=== PATIENT | male | born 1960 | race Caucasian/White ===

== ENCOUNTER 2018-07-15 10:38 | Emergency (ER) | payer MEDICAID ==
[~2018-07-15] VITALS: Ht 185.4 cm; Wt 108.9 kg
[2018-07-15 10:50] VITALS: BP 140/103
== END 2018-07-15 12:25 | disposition home or self-care (01) ==
LOC: ER 10:38
DX: I10 Essential (primary) hypertension (principal); F17.210 Nicotine dependence, cigarettes, uncomplicated

== ENCOUNTER 2019-01-21 10:25 | Emergency (ER) | payer MEDICAID ==
[~2019-01-21] VITALS: Ht 185.4 cm; Wt 111.1 kg
[2019-01-21 10:34] VITALS: BP 136/94
[2019-01-21] MEDS ORDERED: KETOROLAC TROMETH 60MG/2ML VIAL IM ONE (11:30)
== END 2019-01-21 11:49 | disposition home or self-care (01) ==
LOC: ER 10:28
DX: S39.012A Strain of muscle, fascia and tendon of lower back, initial encounter (principal); I10 Essential (primary) hypertension; F17.210 Nicotine dependence, cigarettes, uncomplicated; X50.0XXA Overexertion from strenuous movement or load, initial encounter; Y93.89 Activity, other specified; Y99.8 Other external cause status; Y92.89 Other specified places as the place of occurrence of the external cause
CPT/HCPCS: 72100; 96372; 99283; J1885

== ENCOUNTER 2019-12-06 17:19 | Emergency (ER) | payer MEDICAID ==
[~2019-12-06] VITALS: Ht 185.4 cm; Wt 108.9 kg
[2019-12-06] MEDS ORDERED: KETOROLAC TROMETH 30 MG/ML 1ML VIAL IV ONE (18:00)
[2019-12-06] MEDS ORDERED: SODIUM CHLORIDE 0.9% 1,000 ML IVB ONE (18:00)
[2019-12-06 18:21] LABS: Urine Bacteria NONE SEEN /hpf (None Seen); Urine Blood Negative /uL (Negative); Urine Specific Gravity 1.006 (1.001-1.035); Urine WBC <1 /hpf (0 - 3)
[2019-12-06] MEDS ORDERED: cloNIDine HCL 0.1 MG TAB PO ONE (20:30)
[2019-12-06 21:00] VITALS: BP 153/98
== END 2019-12-06 19:11 | disposition home or self-care (01) ==
LOC: ER 17:19
DX: M54.31 Sciatica, right side (principal); F17.210 Nicotine dependence, cigarettes, uncomplicated; J45.909 Unspecified asthma, uncomplicated; I10 Essential (primary) hypertension
CPT/HCPCS: 74176; 81001; 96361; 96374; 99284; J1885; J7030

== ENCOUNTER 2020-03-03 09:13 | Emergency (ER) | payer MEDICAID, OTHER ==
[~2020-03-03] VITALS: Ht 185.4 cm; Wt 104.3 kg
[2020-03-03 09:15] VITALS: BP 137/84
== END 2020-03-03 12:00 | disposition home or self-care (01) ==
LOC: ER 09:13
DX: U07.1 COVID-19 (principal); I10 Essential (primary) hypertension; F17.210 Nicotine dependence, cigarettes, uncomplicated
CPT/HCPCS: 36415; 71045; 87426

== ENCOUNTER 2020-03-12 13:26 | Emergency (ER) | payer MEDICAID ==
[~2020-03-12] VITALS: Ht 185.4 cm; Wt 102.1 kg
[2020-03-12 15:19] LABS: Basophils # (auto) 0 10 ^3/uL (0-0.2); Basophils % (auto) 0.7 % (0.0-2.0); Eosinophils # (auto) 0.2 10 ^3/uL (0-0.8); Eosinophils % (auto) 2.1 % (0.0-7.0); Hematocrit 44.8 % (41.0-53.0); Hemoglobin 15.5 g/dL (13.5-17.5); Lymphocytes # (auto) 1.7 10 ^3/uL (0.4-5.4); Lymphocytes % (auto) 23.1 % (10.0-50.0); Mean Corpuscular Hemoglobin 29.8 pg (28.0-32.0); Mean Corpuscular Hgb Conc. 34.5 g/dL (32.0-36.0); Mean Corpuscular Volume 86.3 fL (80.0-100.0); Monocytes # (auto) 0.8 10 ^3/uL (0-1.3); Monocytes % (auto) 10.3 % (0.0-12.0); Neutrophils # (auto) 4.8 10 ^3/uL (1.6-8.6); Neutrophils % (auto) 63.8 % (37.0-80.0); Platelet Count (auto) 331 10^3/uL (140-450); Red Cell Distribution Width 14.7 % (11.8-14.3); White Blood Cell 7.4 10^3/uL (4.4-10.8)
[2020-03-12 15:45] LABS: Potassium 4.1 mmol/L (3.5-5.1)
[2020-03-12 15:50] LABS: Albumin 3.6 g/dL (3.4-5.0); BUN/Creatinine Ratio 18.8; Bilirubin, Total 0.7 mg/dL (0.2-1.0); CRP High Sensitivity 0.83 mg/dL (< 0.3); Calcium 8.6 mg/dL (8.5-10.1); Total Protein 8.1 g/dL (6.4-8.2)
[2020-03-12 16:20] VITALS: BP 105/69
== END 2020-03-12 16:23 | disposition home or self-care (01) ==
LOC: ER 13:26
DX: U07.1 COVID-19 (principal)
CPT/HCPCS: 36415; 71045; 80053; 82728; 85025; 86141

== ENCOUNTER 2021-01-27 09:17 | Emergency (ER) | payer MEDICAID ==
[~2021-01-27] VITALS: Ht 185.4 cm; Wt 113.4 kg
[2021-01-27 09:37] VITALS: BP 159/103
[2021-01-27] MEDS ORDERED: ASPirin 81 mg TAB PO ONE (09:45)
[2021-01-27 10:09] LABS: Basophils # (auto) 0.1 10 ^3/uL (0-0.2); Basophils % (auto) 1.3 % (0.0-2.0); Eosinophils # (auto) 0.2 10 ^3/uL (0-0.8); Eosinophils % (auto) 2.1 % (0.0-7.0); Hematocrit 47.1 % (41.0-53.0); Hemoglobin 15.8 g/dL (13.5-17.5); Lymphocytes # (auto) 1.8 10 ^3/uL (0.4-5.4); Lymphocytes % (auto) 23.1 % (10.0-50.0); Mean Corpuscular Hemoglobin 29.5 pg (28.0-32.0); Mean Corpuscular Hgb Conc. 33.5 g/dL (32.0-36.0); Monocytes # (auto) 0.5 10 ^3/uL (0-1.3); Monocytes % (auto) 6.2 % (0.0-12.0); Neutrophils # (auto) 5.3 10 ^3/uL (1.6-8.6); Neutrophils % (auto) 67.3 % (37.0-80.0); Nucleated Red Blood Cells % 0.2 %; Red Blood Cells 5.35 10^6/uL (4.5-5.90); Red Cell Distribution Width 14.6 % (11.8-14.3); White Blood Cell 7.8 10^3/uL (4.4-10.8)
[2021-01-27 10:15] LABS: Albumin 3.9 g/dL (3.4-5.0); Potassium 4.4 mmol/L (3.5-5.1)
[2021-01-27 10:21] LABS: BUN/Creatinine Ratio 12.2; Bilirubin, Total 0.4 mg/dL (0.2-1.0); Total Protein 7.8 g/dL (6.4-8.2)
[2021-01-27 11:12] LABS: Urine Bacteria NONE SEEN /hpf (None Seen); Urine Blood Negative /uL (Negative); Urine Specific Gravity 1.017 (1.001-1.035); Urine WBC <1 /hpf (0 - 3)
== END 2021-01-27 15:51 | disposition left against medical advice (07) ==
LOC: ER 09:17
DX: R07.89 Other chest pain (principal); I10 Essential (primary) hypertension
CPT/HCPCS: 36415; 71046; 80053; 81001; 83735; 84484; 85025; 93005

== ENCOUNTER 2021-11-07 12:31 | Emergency (ER) | payer MEDICAID ==
[~2021-11-07] VITALS: Ht 190.5 cm; Wt 112.2 kg
[2021-11-07 13:09] VITALS: BP 156/94
[2021-11-07] MEDS ORDERED: KETOROLAC TROMETH 60MG/2ML VIAL IM ONE (13:30)
[2021-11-07] MEDS ORDERED: IBUP800T27 PO (14:20)
== END 2021-11-07 14:27 | disposition home or self-care (01) ==
LOC: ER 12:33
DX: S39.012A Strain of muscle, fascia and tendon of lower back, initial encounter (principal); M47.816 Spondylosis without myelopathy or radiculopathy, lumbar region; I10 Essential (primary) hypertension; X50.1XXA Overexertion from prolonged static or awkward postures, initial encounter; Y93.89 Activity, other specified; Y92.89 Other specified places as the place of occurrence of the external cause; Y99.8 Other external cause status
CPT/HCPCS: 72100; 96372; 99283; J1885

== ENCOUNTER 2022-09-11 17:48 | Emergency (ER) | payer MEDICAID ==
[~2022-09-11] VITALS: Ht 185.4 cm; Wt 114.5 kg
[~2022-09-11 17:48] MED LIST: IBUP-1456 PO
[2022-09-11 18:18] VITALS: BP 155/91; PULSE 83; RESP 22; O2SAT 97
== END 2022-09-11 20:34 | disposition left against medical advice (07) ==
LOC: ER 17:48
DX: R06.02 Shortness of breath (principal); Z53.21 Procedure and treatment not carried out due to patient leaving prior to being seen by health care provider
CPT/HCPCS: 93005

== ENCOUNTER 2025-01-15 09:45 | Emergency (ER) | payer MEDICAID, MEDICARE ==
[~2025-01-15] VITALS: Ht 172.7 cm; Wt 110.2 kg
[2025-01-15 09:50] VITALS: BP 147/92; PULSE 81; RESP 18; TEMP 98.2; O2SAT 96
--- NOTE | 2025-01-15 11:02 | ED.PDOC ---
Musculoskeletal HPI Comments duplicate chart Chief Complaint: Lower Extremity Time Seen by MD: 09:55 Primary Care Provider: UNKNOWN Reviewed Notes: Nurses Notes, Medications, Allergies Allergies: Coded Allergies: NO KNOWN ALLERGIES (Unverified , 03/02/14) Home Meds Active Scripts Ibuprofen (Ibuprofen) 800 Mg Tab, 800 MG PO TID PRN, #60 TAB Prov:MENDEL ARMIJONORM GUTHRIE 11/[birth year] Information Source: Patient Mode of Arrival: Ambulatory Past Medical History PAST MEDICAL HISTORY: HTN Surgical History: Denies all surgeries Family History Family History: Family hx of DM, Family hx of HTN Social History Smoker: Non-Smoker Alcohol: Rarely Drugs: Denies Drug Use Lives In: Home Physical Exam General Appearance: No Apparent Distress, Normal HEENT: Normal ENT Inspection, Pharynx Normal, TMs Normal Neck: Full Range of Motion, Non-Tender, Normal, Normal Inspection Respiratory: Chest Non-Tender, Lungs Clear, No Accessory Muscle Use, No Respiratory Distress, Normal Breath Sounds Cardiovascular: No Edema, No JVD, No Murmur, No Gallop, Normal Peripheral Pulses, Regular Rate/Rhythm Breast Exam: Deferred Gastrointestinal: No Organomegaly, Non Tender, No Pulsatile Mass, Normal Bowel Sounds, Soft Genitalia: Deferred Pelvic: Deferred Rectal: Deferred Extremities: No calf tenderness, Normal capillary refill, Normal inspection, Normal range of motion, Non-tender, No pedal edema Musculoskeletal : Apperance: Normal Neurologic: Alert, supervisor modern languages II-XII nml as Tested, No Motor Deficits, Normal Affect, Normal Mood, No Sensory Deficits Cerebellar Function: Normal Reflexes: Normal Skin: Dry, Normal Color, Warm Lymphatic: No Adenopathy Was a procedure done? Was a procedure done?: No Differential Diagnosis EXT Differential Diagnosis: Other X-Ray, Labs, Meds, VS Vital Signs Date Time Temp Pulse Resp B/P (MAP) Pulse Ox O2 Delivery O2 Flow Rate FiO2 01/15/25 09:50 98.2 81 18 147/92 96 98.2 Time of 1ST Reevaluation: 07:43 Reevaluation 1ST: Improved Patient Education/Counseling: Diagnosis Family Education/Counseling: Diagnosis Departure 1 Departure Time of Disposition: 11:02 Impression: Primary Impression: Right sided sciatica Disposition: HOME / SELF CARE / HOMELESS Condition: Stable Discharged With: Self Critical Care Note Critical Care Time?: No Stability Stability form required: No Heart Score Heart Score: Heart Score Response (Comments) Value History N/A 0 EKG N/A 0 Age N/A 0 Risk Factors N/A 0 Troponin N/A 0 Total 0 MAYLIN HOLLOWAY NP Jan 15, 2025 11:02
[2025-01-15] MEDS: methylPREDNISolone SOD SUCC 125 MG/2 ML VL IM ONE (11:20)
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
== END 2025-01-15 11:21 | disposition home or self-care (01) ==
LOC: ER 09:45
DX: M54.31 Sciatica, right side (principal); F10.90 Alcohol use, unspecified, uncomplicated; I10 Essential (primary) hypertension; Z79.899 Other long term (current) drug therapy